=== PATIENT | female | born 1955 ===

== ENCOUNTER 2018-06-26 05:50 | Day surgery (SDC) | payer MEDICARE ==
[2018-06-26] VITALS (7 sets, daily range): BP systolic 93–116; BP diastolic 43–52
[~2018-06-26] VITALS: Ht 152.4 cm; Wt 55.8 kg
[2018-06-26] MEDS ORDERED: SODIUM CHLORIDE 0.9% 1000ML 1,000 ML IV ONE (05:52)
[2018-06-26] MEDS ORDERED: PANT40TA25 PO (07:31)
[2018-06-26] MEDS ORDERED: RIFA550T PO (07:31)
[2018-06-26] MEDS ORDERED: SPIR100T5 PO (07:31)
[2018-06-26] MEDS ORDERED: CHOL50004 PO (07:31)
[2018-06-26] MEDS ORDERED: DICY10CA13 PO (07:31)
[2018-06-26] MEDS ORDERED: LEVO0.5P2 MC (07:31)
[2018-06-26] MEDS ORDERED: ALPR-410 PO (07:31)
[2018-06-26] MEDS ORDERED: CETI10TA86 PO (07:31)
[2018-06-26] MEDS ORDERED: GLIP5TAB11 PO (07:31)
[2018-06-26] MEDS ORDERED: CALC-1009 PO (07:31)
[2018-06-26] MEDS ORDERED: POTA10CA44 PO (07:31)
[2018-06-26] MEDS ORDERED: LACT10SO46 PO (07:31)
[2018-06-26] MEDS ORDERED: FURO40TA5 PO (07:31)
[2018-06-26] MEDS ORDERED: FERS325 PO (07:31)
[2018-06-26] MEDS ORDERED: PROPOFOL 10 MG/ML 20ML VIAL IV ONE (08:12)
== END 2018-06-26 09:04 | disposition home or self-care (01) ==
LOC: ENDO 05:50 → DAH 05:50 → ENDO 09:04
PROVIDERS: ATTEND Internal Medicine
DX: K29.50 Unspecified chronic gastritis without bleeding (principal); I85.10 Secondary esophageal varices without bleeding; K74.60 Unspecified cirrhosis of liver; K31.89 Other diseases of stomach and duodenum; I86.4 Gastric varices; K21.9 Gastro-esophageal reflux disease without esophagitis; E11.9 Type 2 diabetes mellitus without complications; Z98.890 Other specified postprocedural states; Z90.710 Acquired absence of both cervix and uterus; Z79.899 Other long term (current) drug therapy; Z83.3 Family history of diabetes mellitus; Z86.010 Personal history of colon polyps; E03.9 Hypothyroidism, unspecified
CPT/HCPCS: 43239; 82948 ×2; 88305; 88342; A4606; J2704; J7030